=== PATIENT | male | born 1945 | race Caucasian/White ===

== ENCOUNTER → 2019-01-18 11:26 | Outpatient (CLI) | payer OTHER, SELFPAY ==
[2019-01-18 12:31] LABS: Carbon Dioxide 30 mmol/L (22-32); Chloride 102 mmol/L (98-107); HEMOLYSIS < 15 (0-50); Potassium 4.9 mmol/L (3.4-5.1); Sodium 142 mmol/L (137-145)
[2019-01-18 12:38] LABS: Add Manual Diff / Slide Review NO; Basophils Absolute Auto 0 /uL (0-100); Basophils Percent Auto 0.2 % (0-2); Eosinophils Absolute Auto 300 /uL (0-450); Eosinophils Percent Auto 3.2 % (2-4); Hemoglobin 14.4 g/dL (13.5-17.5); Lymphocytes Absolute Auto 3200 /uL (1100-4500); Lymphocytes Percent Auto 39.5 % (25-40); Mean Corpuscular HGB Conc 32.7 % (30-36); Mean Corpuscular Hemoglobin 30.3 PG (26-34); Mean Corpuscular Volume 92.6 fL (80-100); Monocytes Absolute Auto 600 /uL (0-900); Monocytes Percent Auto 7.7 % (3-14); Neutrophils Absolute Auto 4000 /uL (1500-7000); Neutrophils Percent Auto 49.4 % (50-75); Platelet Count 239 X10^3/uL (150-400); Red Blood Cell Count 4.75 X10^6/uL (4.5-5.9); Red Cell Distribution Width 13.1 % (11.6-14.8)
== END ==
PROVIDERS: Visit Provider Orthopaedic Surgery
DX: Z01.818 Encounter for other preprocedural examination (principal); M16.10 Unilateral primary osteoarthritis, unspecified hip; Z01.812 Encounter for preprocedural laboratory examination
CPT/HCPCS: 36415; 80051; 85025; 93005

== ENCOUNTER 2019-01-31 08:16 | Inpatient (IN) | payer OTHER, SELFPAY ==
[2019-01-24 14:09] VITALS: BMI 28.2
[2019-01-31] VITALS (14 sets, daily range): BP systolic 89–139; BP diastolic 42–76; PULSE 47–78; RESP 9–19; TEMP 35.8–36.9; O2SAT 13–97; BMI 28.9
--- NOTE | 2019-01-31 | DI.RAD.S_ITS ---
PROCEDURE: XR PELVIS 1-2V INDICATIONS: LEFT TOTAL HIP TECHNIQUE: 1 view of the lower pelvis acquired. COMPARISON: [facility] [place], CR, XR PELVIS WITH LATERAL HIP LEFT, 01/18/2019, 11:10. FINDINGS: Bones: Patient is status post a left hip arthroplasty, with hardware components in expected positions. The hip joint appears congruent. The visualized bony structures appear intact. Soft tissues: Overlying postoperative changes are noted. Scattered vascular atherosclerotic calcifications. IMPRESSION: Expected postsurgical change for left hip arthroplasty. Dictated by: Chelsi Landrum MD, PhD on 01/31/2019 at 13:43 Approved by: Chelsi Landrum MD, PhD on 01/31/2019 at 13:44
--- NOTE | 2019-01-31 06:00 | DI.RAD.S_ITS ---
PROCEDURE: XR HIP W PEL IF DONE LT 2V INDICATIONS: INTEROPERATIVE LEFT HIP TECHNIQUE: 2 view(s) of the hip acquired. COMPARISON: None. FINDINGS: Bones: Multiple fluoroscopic images of the left hip demonstrate post left total hip arthroplasty, with hardware components in expected positions. The hip joint appears congruent. The visualized bony structures appear intact. Soft tissues: No suspicious soft tissue abnormalities. IMPRESSION: Status post left total hip arthroplasty. Dictated by: Jamie La M.D. on 01/31/2019 at 13:46 Approved by: Jamie La M.D. on 01/31/2019 at 13:47
[2019-01-31] MEDS: LACTATED RINGERS 1,000 ML 42 ML IV ×2 (09:38→12:30)
[2019-01-31] MEDS: ACETAMINOPHEN 325 MG TABLET 975 MG PO (09:40)
[2019-01-31] MEDS: CELECOXIB 200 MG CAPSULE PO (09:41)
[2019-01-31] MEDS: PREGABALIN 75 MG CAPSULE PO (09:41)
--- NOTE | 2019-01-31 10:16 | PM.PREOP ---
Pre-operative Note Interval Note History & Physical reviewed/Exam performed by Physician: Yes Changes to H&P: No
--- NOTE | 2019-01-31 11:02 | SUR.PREOP ---
per dr. starks inr not needed
[2019-01-31] MEDS: CEFAZOLIN 2 GM/100 ML FROZ.PIGGY IV ×2 (11:05→19:05)
[2019-01-31] MEDS: TRANEXAMIC ACID 1,000 MG VIAL 1000 MG INJ ×2 (11:29→13:01)
--- NOTE | 2019-01-31 11:43 | SUR.OPER ---
Head on foam donut. Supine on fracture table with bilateral legs secured in padded boot. Left arm across chest on foam arm pad, secured with sheet and tape. Right arm on padded arm table with foam pad.
[2019-01-31] MEDS: ROPIVACAINE 0.5% PF 5 MG/ML 20ML AMP 60 ML INJ (11:51)
[2019-01-31] MEDS: MORPHINE 4 MG/ML INJ INJ (11:52)
[2019-01-31] MEDS: KETOROLAC 30 MG/ML VIAL IV (11:53)
--- NOTE | 2019-01-31 13:37 | P.OP_ITS ---
Operative Date/Time/Diagnoses Date of procedure: 01/31/19 Time of procedure: 13:33 Pre-op diagnosis: Left hip degenerative joint disease Post-op diagnosis: same Procedure & Clinicians Procedure: Left total hip arthroplasty (CPT code 45316 with botany laboratory assistant) Same procedure as scheduled: Yes Indications: Patient is an 74-year-old male with severe left hip DJD. The patient has pain with activities and at rest, limited ambulation and activity tolerance, difficulties with ADLs, and failure of conservative treatment. We have discussed the nature of condition, treatment options, risks and benefits, and patient elects to proceed with total hip arthroplasty via a direct anterior approach and gives informed consent. Surgeon: Abisai Hayward Thermit Welding Machine Operator: Regino Matt Anesthesia Type: General and Spinal Operative Notes Closure Type: primary Specimen(s): none sent Prosthetic devices, grafts, tissues, transplants, or devices: Acetabulum: Reilly and Nephew R3 acetabular component size 58 mm Femoral component: Reilly and Nephew Anthology stem size 10 with high offset Femoral head: 36 mm + 4 Oxinium Estimated Blood Loss (mL): 200 Blood products transfused: none Procedure in detail: Patient is brought to the operating room and after satisfactory induction of anesthetic and administration of IV antibiotics as well as initial dose of tranexamic acid, was placed in the supine position on the on the [place] table with both feet well padded in the ski boot foot holders. Left hip and lower extremity then prepped and draped in the usual sterile fashion. longitudinal anterolateral incision created beginning just lateral and distal to the ASIS and extending distally. this was carried sharply down to the fascia overlying the TFL, which was incised longitudinally and the muscle stripped from the fascia retracting the muscle belly posteriorly. the interval medial to the greater trochanter was identified with palpation and a Cobra retractor was placed. a Gelpi retractor was used to retract soft tissue distally where the deep fascia was incised cautiously and the circumflex vessels identified and cauterized. Pre capsular fat was then excised and a longitudinal capsular incision was created with the superior and inferior capsule released followed by a release of the inferomedial capsule. retractors were then placed in an intracapsular position and the femoral neck cut was made according to preoperative templating with the oscillating saw. femoral head was then removed with corkscrew device. Acetabular retractors then placed and sequential acetabular reaming to 57 mm was performed with an excellent circumferential ream and position confirmed as satisfactory using fluoroscopy. A trial 57 mm cup was then inserted and impacted into position with excellent position and fixation achieved, again confirmed with fluoroscopy. The trial was then removed and a permanent 58 mm Reilly and Nephew R3 acetabular component was selected inserted and impacted into position under fluoroscopic guidance. Permanent liner was then inserted. The leg was then extended, externally rotated, and adducted, and proximal femoral retractors were placed. soft tissue and residual capsule were removed from the piriformis fossa and a further posterior release was performed. a box osteotome was used to enter the proximal femoral canal and initial broaches placed down the canal. initial position and alignment were confirmed with fluoroscopy and then broaching resumed. Broaching continued up to size 10 which provided a snug fit and was consistent with preoperative templating. A trial reduction with a high offset +4 combination provided excellent leg length, range of motion, and stability which was also confirmed fluoroscopically. The broach was then removed and the permanent size 10 high offset anthology stem was selected, inserted, and impacted into position with excellent position and fixation achieved. another trial reduction year old above characteristic so a 36 mm +4 Oxinium head was selected and impacted. Final reduction was then performed and final fluoroscopic images confirmed satisfactory leg length, offset, and implant size and fit. Periarticular tissues were infiltrated with a combination of ropivacaine, morphine, and Toradol. The fascia of the TFL was then repaired with a running #1 Vicryl, subcutaneous layer closed with 3 O Vicryl, this was followed by an intra cuticular strata fix suture and skin closure with Exofen. The wound was dressed with an Aquacel dressing. Anesthetic terminated and patient taken to postanesthetic recovery in satisfactory condition. Complications: none Condition: stable Disposition: PACU Plan for aftercare: Patient will be admitted to the acute care [facility], and anti cipate discharge on postop day 1-2 with follow-up in office in 10-14 days. Outpatient physical therapy will be arranged and patient will continue to observe posterior hip precautions. Patient will continue use of postoperative Lovenox for 10 days postop.
--- NOTE | 2019-01-31 14:04 | SUR.PHASEI ---
Continues to deny pain/nausea, tolerating PO well. Denies dizziness. Dressing remains CDI
--- NOTE | 2019-01-31 14:15 | SUR.PHASEI ---
1406 To room 229, bed down and locked, call light within reach, pleasant, oriented, and talking. Denies pain/nausea, tolerating PO well. Dressing remains CDI. SCDs on. present. Clothes and cane to room,
[2019-01-31] MEDS: LACTATED RINGERS 1,000 ML 125 ML IV ×2 (14:54→22:35)
--- NOTE | 2019-01-31 16:16 | PT.IPTN ---
Current Diagnoses Unilateral primary osteoarthritis, left hip (01/31/19) Trochanteric bursitis, left hip (01/31/19) Iliotibial band syndrome, left leg (01/31/19) Surgery Performed Operation Date: 01/31/19 10:15 Actual Procedures p Total Hip Arthroplasty/Anterior Approach(Left) - Abisai Hayward MD Physical Therapy Treatment Note M3 PT-IP Subjective Start: 01/31/19 16:15 Freq: NEEDED Status: Active Protocol: Document 01/31/19 16:15 (Rec: 01/31/19 16:16 [id number]) Subjective Physical Therapy Visit Type Type Administrative Note Notes Pt awake in bed but still have numbness on LLE and unable to lift his leg yet. Left JASWINDER post op booklet to him. Reattempt PT tomorrow morning
--- NOTE | 2019-01-31 19:25 | PC.NURSE ---
1900 - Pt continues to report significant numbness to groin, left hip and LLE. Sat at edge of bed and attempt to void without success. Pt reports initial urge, but without results. Denies pain, O2 sats 94% on RA. Using IS independently. Monitor. Call light in reach. Supportive at bedside.
[2019-01-31] MEDS: HYDROCODONE/ACET 5/325 TABLET 1 TAB PO (23:46)
[2019-02-01 00:25] VITALS: BP 108/56; PULSE 78; RESP 15; TEMP 36.7; O2SAT 92
--- NOTE | 2019-02-01 00:26 | PC.NURSE ---
Pt. requested that I remove his SCD's for sleeping. He stated that he was unable to sleep while they were on.
[2019-02-01] MEDS: CEFAZOLIN 2 GM/100 ML FROZ.PIGGY IV (02:35)
[2019-02-01 03:12] VITALS: BP 123/65; PULSE 66; RESP 16; TEMP 36.6; O2SAT 96
[2019-02-01 06:02] LABS: Hematocrit 36.3 % (41-53); Hemoglobin 12.2 g/dL (13.5-17.5)
[2019-02-01 07:50] VITALS: BP 120/67; PULSE 61; RESP 16; TEMP 36.6; O2SAT 97
[2019-02-01] MEDS: ENOXAPARIN 40 MG/0.4 ML SYRINGE SUBCUT (08:15)
[2019-02-01] MEDS: HYDROCODONE/ACET 5/325 TABLET 1 TAB PO ×2 (08:15→13:32)
[2019-02-01] MEDS: SODIUM CHLORIDE 0.9% FLUSH 10 ML IV (08:16)
--- NOTE | 2019-02-01 10:18 | PT.IIE ---
Current Diagnoses Unilateral primary osteoarthritis, left hip (01/31/19) Trochanteric bursitis, left hip (01/31/19) Iliotibial band syndrome, left leg (01/31/19) Surgery Performed Operation Date: 01/31/19 10:15 Actual Procedures p Total Hip Arthroplasty/Anterior Approach(Left) - Abisai Hayward MD Surgical History (Last Updated 01/24/19 @ 14:23 by Yoana Capone, RN) History of arthroplasty of right knee (Acute) Medical History (Last Updated 01/24/19 @ 14:23 by Yoana Capone RN) Elevated cholesterol (Acute) Elevated liver enzymes (Acute) Enlarged prostate (Acute) Former smoker (Acute) Fragile skin (Acute) Hearing impaired (Acute) Left hip pain (Acute) Pneumonia (Acute) Pre-diabetes (Acute) Physical Therapy Inpatient Evaluation/Re-Eval M1 PT/OT-IP Prior Functional Status Start: 01/31/19 16:15 Freq: NEEDED Status: Active Protocol: Document 02/01/19 10:18 DLM (Rec: 02/01/19 11:56 DLM [id number]) Medical Review Prior Functional Status Medical History Reviewed Yes Diet/Fluid Consistency Regular Communication WNL Mobility and Gait Independent without device, community distances, plays golf Activities of Daily Living and IADL's Independent Social History Household Members spouse Living Arrangements House Number of Floors (Floors) Two Floors Number of Stairs To Enter/Railing? 0 Home Environment High Toilet Walk in Shower Home Equipment Front Wheel Walker Straight Cane Client Onboarding Analyst Sock Aid Employment Status Retired Additional Social History Comment he can stay on one level of house, does not have to do stairs M2 PT-IP Current Condition Start: 01/31/19 16:15 Freq: NEEDED Status: Active Protocol: Document 02/01/19 10:18 DLM (Rec: 02/01/19 11:56 DLM [email or web address]) Physical Therapy Current Condition Current Condition Evaluation Date 02/01/19 Treatment Diagnosis left JASWINDER, anterior approach Onset Date 01/31/19 Precautions Anterior Hip Precautions No Hip Extension No Hip External Rotation Weight Bearing Status Weight Bearing Status Weight Bear as Tolerated M3 PT-IP Subjective Start: 01/31/19 16:15 Freq: NEEDED Status: Active Protocol: Document 02/01/19 10:18 DLM (Rec: 02/01/19 11:56 DLM [email or web address]) Subjective Physical Therapy Visit Type Type Initial Evaluation Visit Start Time 09:20 Visit Stop Time 10:18 Total Visit Minutes 58 Number of STAFFING ADMINISTRATOR Visits 0 Physical Therapy Visit Comments Patient Comments His pain is better than before surgery, [place]: [place], has out-pt PT set up for tomorrow and Eus[place]io . Patient Goals go home today Therapy Pain Assessment Pain When Pain Assessed During Mobility Pain Present Pain Present Pain Reported Location Left Hip Intensity 2 Scale Used Numeric (1 - 10) Description Aching Tender Pain Behaviors Guarding Pain Management Techniques Apply Cold Re-positioning M4 PT-IP Mobility and Gait Start: 01/31/19 16:15 Freq: NEEDED Status: Active Protocol: Document 02/01/19 10:18 DLM (Rec: 02/01/19 11:56 DLM [email or web address]) PT-Bed Mobility Assessment Supine to Sit Supine to Sit Independent Sit to Supine Sit to Supine Independent Scooting Scooting to Edge of Bed Independent Scooting Up and Down in Bed Independent PT-Transfer Assessment Sit to and From Stand Sit to and from Stand Independent Use of Upper Extremities Equipment Transfer Assistive Device Gait Belt Front Wheeled Walker Transfers Transfer Destination Bed Chair Transfer Technique Stand Step Pivot Transfer Ability Level of Assist Independent Use of Upper Extremities Comments Mobility Comments he needs to use UE support to get left LE into/out of bed, training used for safest technique Gait Assessment Gait Gait Assistance Required: Independent Distance (Feet) 150 Able to Maintain Weight Bearing Status Yes During Gait Assistive Devices Assistive Device Gait Belt Front Wheeled Walker Gait Deviations General Gait Pattern Antalgic Factors Limiting Gait Function Factors Limiting Gait Function Decreased Activity Tolerance Decreased Strength Limited Range of Motion Pain Comments Gait Comments he vaults off right LE to advance left LE during swing phase on left LE, educated pt to avoid this vaulting motion which can lead to right calf tightness and cramping, he is able to demonstrate a safe gait pattern without vaulting, he has difficulty lifting left LE off floor with hip flexion motion with reports of weakness Stair Climbing Assessment Comments Stair Climbing Comments he reports he has no stairs he has to perform at home PT-Balance Assessment Sitting Balance and Reactions Static Sitting Balance Ability Normal Dynamic Sitting Balance Ability Normal Standing Balance and Reactions Static Standing Balance Ability Good Dynamic Standing Balance Ability Good Device Used FWW M5 PT-IP Objective Assessments Start: 01/31/19 16:15 Freq: NEEDED Status: Active Protocol: Document 02/01/19 10:18 DLM (Rec: 02/01/19 11:56 DLM [email or web address]) Orientation Orientation/Cognition Level of Alertness Alert Orientation Name Age Birthday Month Date Year Day of Week Place Situation Language Function Ability No Deficits Noted Safety Awareness Understands Safety Issues Memory Description No Deficits Noted Gross Range of Motion Upper Extremity ROM Assessment Within Functional Limits Lower Extremity ROM Assessment Left Impaired Impairments post-op restrictions left hip with pain Strength Upper Extremity Strength Assessment Within Functional Limits Lower Extremity Strength Assessment Left Impaired Hip hip flexion 2/5 Knee ext 3-/5 Ankle DF 4+/5 Comments Strength Comments left LE strength affected by post-op pain Coordination Assessment Gross Coordination Gross Coordination WNL Sensation Assessment Sensation Gross Sensation Left LE Impaired Sensation Description Numbness Comments Sensation Comments mild numbness in left thigh areas since surgery Muscle Tone Muscle Tone WNL Yes M6 PT-IP Treatment Start: 01/31/19 16:15 Freq: NEEDED Status: Active Protocol: Document 02/01/19 10:18 DLM (Rec: 02/01/19 11:56 DL [email or web address]) Physical Therapy Treatment Exercises Exercises Ankle Pumps Gluteal Sets Quad Sets Heel Slides Education Education Provided Precautions Weight Bearing Status Post-Op Packet Safety Other Treatments Other Treatment Performed he has FWW which is too short for him, his planned to borrow a taller one when back on [facility], he is safe to discharge home with his current FWW but recommend he get an appropriate height FWW as soon as possible, answered questions and addressed concerns with patient and his , pt is ok to cancel OP PT session for tomorrow and begin on Thursday instead M7 PT-IP Assessment and Plan Start: 01/31/19 16:15 Freq: NEEDED Status: Active Protocol: Document 02/01/19 10:18 DLM (Rec: 02/01/19 11:56 DLM [email or web address]) PT Summary Assessment and Plan Potential Rehabilitation Potential Excellent Status of Condition at Evaluation Evolving Summary Impairments Pain ROM Strength Balance Bed Mobility Transfers Gait Activity Tolerance Progress Towards Goals Safe For Discharge Assessment Summary Marga is alert and motivated to participate in physical therapy. He tolerated gait and mobility well today. He has a supportive to assist him at home. He demonstrates safe gait with FWW on level surfaces. He reports having no steps that he has to do when he first gets home. He appears safe to discharge home when medically cleared. Frequency of Treatment Frequency Of Treatment Discharge Treatment Plan Other Recommendations and Next Treatment cleared for discharge home Focus today Recommendations To Nursing Amount of Assist Needed Standby Assistance Discharge Recommendations PT Discharge Recommendations Home with Assistance Outpatient PT
--- NOTE | 2019-02-01 10:32 | P.DS_ITS ---
History of Present Illness Date Patient Seen: 02/01/19 Time Patient Seen: 10:29 Chief complaint: Total Hip Arthroplasty Narrative: Hospital day 2, postop day 1 following left anterior total hip arthroplasty by Dr. Hayward. Patient doing well at this time. he has been ambulating to bathroom. He has not had any physical therapy yet. Pain controlled well with Armstrong 5/325 mg. He is a [facility] patient and anticipates going home today. he does have physical therapy scheduled at [facility]. Discharge Providers Date of admission: 01/31/19 08:16 Discharge Date: 02/01/19 Primary care physician: Roel Bajwa MD Consults: 01/31/19 14:15 Consult to Discharge Planning Routine Comment: Consult to Physical Therapy Evaluate & Treat Comment: Physician Instructions: post op JASWINDER protocol Consult to Respiratory Therapy Evaluate & Treat Comment: Physician Instructions: Evaluate and treat Discharge provider: Vineet Resendiz PA-C Summary Discharge Diagnosis: Status post left anterior total hip arthroplasty Hospital Course: Patient brought to hospital on 01/31/2019 for above noted surgery. he remained stable postoperatively. Progressed well with physical therapy. Ready for discharge home on postop day 1. Status at Discharge Cognitive/behavioral status at discharge: oriented Functional status at discharge: uses cane/walker Overall status at discharge: patient is progressing back to baseline Time Spent with Patient Less than 30 minutes Exam Vital Signs (past 8 hours): - 02/01/19 03:12 02/01/19 07:50 Temperature 97.9 F 97.9 F Pulse Rate 66 61 Respiratory Rate 16 16 Blood Pressure 123/65 120/67 Pulse Oximetry 96 97 Oxygen Delivery Method Room Air Oxygen Flow Rate 1 Narrative Exam Narrative: Alert, oriented no acute distress sitting in chair. Legs. Aquacel dressing to left anterior hip is dry without drainage or inflammation. No calf pain or swelling. Pulses symmetrical. Objective Labs Result Diagrams: 02/01/19 04:59 Labs: Laboratory Results - last 24 hr 02/01/19 04:59 Hgb 12.2 L Hct 36.3 L Discharge Plan Discharge Plan Patient Disposition: Home Discharge comment: Discharge home after cleared by PT. Patient is a [facility] patient has postoperative pain medication at home. Anterior total hip arthroplasty protocol x6 weeks postop. He is scheduled for physical therapy at [facility]. Discharge Med Rec/Prescriptions Prescriptions: New enoxaparin [Lovenox] 40 mg/0.4 mL Syringe 40 mg subcut DAILY Qty: 9 RF: 0 Continued acetaminophen 500 mg Capsule 1,000 mg PO BID RF: 0 Follow up/Referrals: Roel Bajwa MD [Primary Care Provider] - Provider Discharge Instructions Diet: Diet as Tolerated Activity: Ambulate as tolerated. Use walker as needed. anterior total hip arthroplasty protocol precautions x6 weeks postop. Cold/Heat Therapy: Cold pack to hip as needed. Skin/Wound/Dressing Care Report to your healthcare provider any signs of infection, such as:: chills, fever, night sweats, increased pain, unusual drainage and unusual redness Dressing: Keep Aquacel dressing in place until postop visit. Visit Report/Discharge Packet Instructions: DI for Hip Replacement Discharge Data Primary Care Provider: Roel Bajwa Attending Provider: Abisai Hayward Admit Date/Time: 01/31/19 08:16 Quality VTE Deep Vein Thrombosis/Pulmonary Embolism Present on Admission: No
--- NOTE | 2019-02-01 14:14 | PC.NURSE ---
Discharge: IV dc'd intact. Reviewed all d/c info with patient and his . Anterior hip precautions. Meds per [facility], follow home list. Given script for Lovenox and did Lovenox teaching with patient this morning. He self-administered his Lovenox dose this morning directed and supervised by this newspaper writer- he used correct technique and felt okay doing this at home. Has outpatient PT set up. Verbalized understanding of all discharge instructions and stated no further questions. All personal belongings collected and sent with patient. Given priority board for 2:40 ferry to [place]. Taken out to private vehicle via wheelchair, accompanied by nursing staff.
--- NOTE | 2019-02-01 14:27 | CM.DANOTE ---
Patient is a 74 year old male who was admitted [facility] on 01/31/19 for Total Hip Arthro. Pt has [facility] for insurance and his PCP is Dr. Roel Bajwa. EMR was reviewed. Per Ortho PA, pt planning d/c home today pending PT. Per PT, pt is safe for d/c home with spouse assist and outpt PT set up already in Thursday. Pt lives at home with his spouse on [address] and is Independent with ADL's at baseline and has DME equipment at home to help with toilet seat lift, grab bars, walker, etc. Pt already scheduled for outpt PT on Thursday [place]. No concerns at this time and no identified barriers to discharge. Plan: Patient to d/c home today via spouse POV and [address] to Thursday and outpt PT. WADE Boucher Discharge Planning/Care Management CM Discharge Assessment Start: 02/01/19 14:25 Freq: Status: Discharge Protocol: Document 02/01/19 14:25 BF (Rec: 02/01/19 14:27 BF [id number]) Discharge Planning Assessment Assigned Cell Tender Helper WADE Lim DPOA/Assigned Designee Name Spouse Rashmi Contact Information [phone] Advance Directives? Yes Advance Directives on File No History Provided By Patient Family Member Medical Record Has Patient been admitted in last 30 No days? Prior Living Arrangements House Household Members spouse Type of transporation used prior to Drives own vehicle admit Independent with ADL's Yes Is patient alert and oriented? Yes Caregiver for Another No Community Services used prior to Physical Therapy admission: DME Already Rented / Owned Elevated Toilet Seat FWW / Walker Comment Per PT, home with spouse assist Barriers to Discharge No Discharge Plan Home Community Services Physical Therapy Transportation Arrangement Spouse to provide transport back to Thursday Referrals Initiated None needed Review Status In Process Please Provide Date Initial DC 02/01/19 Assessment Was Performed Next Review Type Continued Stay Review Pre-Anesthesia Assessment Start: 01/24/19 14:09 Freq: Status: Discharge Protocol: Document 01/24/19 14:09 CAB (Rec: 01/24/19 15:04 CAB [id number]) Pre-Anesthesia Assessment Patient Information Reviewed Via Phone Assessment Assessment Completed With Patient Diagnostic Results CBC EKG Electrolytes Primary Care Provider Roel Bajwa Seen Specialist in Last 12 Months Yes Specialist Seen Orthopedist Primary Language Pashto [id number] Analyst Required No Height 187.96 cm Weight 99.79 kg Body Mass Index (BMI) 28.2 Hearing Ability Hard of Hearing Use of Hearing Aid Visual Assist Glasses Dentition Type Dental Implants Barriers to Learning None Other Aids No Hx Anesthesia Reactions No Hx Family Anesthesia Reaction No Hx Malignant Hyperthermia No Hx Blood Transfusions No Anesthesia Review Requested No Assayer Helper No alcohol intake current alcohol intake frequency 0-2 drinks per day Smoking Status Former smoker how long ago did patient quit smoking Quit 1989 Substance Use Type does not use Pain Present Pain Reported Musculoskeletal Symptoms Abnormal Gait Difficulty Walking Joint Pain Muscle Cramps History of Falling (Recent or History of No ) Patient is completely paralyzed or No completely immobile Prosthesis or Orthotic Device Cane Mental Status Oriented to own ability Is patient on oxygen? No Does patient have RAMIREZ/SOB No Hx Sleep Apnea No Currently Taking a Beta Greg No Can You Climb a Flight of Stairs Without Yes SOB Hx Chest Pain No Hx SOB No Hx Syncope or Dizziness No Anti-Coagulant Therapy No Has a Profile Stitching Machine Operator No Cardiac Testing No Hx Pacemaker/ICD No Pacemaker Rep Required? No Cardiac Clearance Received Not Applicable Diet Type At Home Regular dysphagia No Bladder Pattern Nocturia Urinary Catheter Present No Hx Urinary Self Catheterization No Diabetes No Hx Drug Resistant Organism No Presence of External or Internal Medical No Devices Have you traveled outside the [facility] in the last 30 days? Marital Status Lives With spouse Prior Living Arrangements House Number of Floors (Floors) Two Floors Support System Spouse Does the Patient Have Assistance After Yes Surgery Patient Discharge Plan Description Return Home Comment Pt advised 1 night length of stay per surgeon's office Feels Safe in Current Environment Yes Been Physically Hurt or Threatened By a No Person in Current Environment Do you have thoughts of harming yourself None or others? Are you currently considering suicide? No Do you have a plan to hurt yourself or No Plan others? Do You Have Any Spiritual Beliefs That No May Affect Your HC Choices? Do You Have Any Cultural Practices That No May Affect Your HC Choices? Spiritual Referral None Comment Baptism Who Can We Speak to About Patient's Care Family, friends Identifying Code for Release of Patient Declines to issue Information Health Care Proxy/Next of Kin Rashmi () Health Care Proxy Emergency Contact Name Rashmi () Emergency Contact Advance Directives? Yes Advance Directives on File No Requested Patient Bring Advanced Yes Directives DOS PAC Instructions Durable medical equipment Medications to take/avoid Nasal antibiotic No ETOH/petroleum product on skin DOS NPO Post-op transportation Pre-surgical wash Sturdy shoes/comfortable clothes Do not bring valuables and remove jewelry
== END 2019-02-01 14:24 | disposition home or self-care (01) | DRG 470 ==
PROVIDERS: Admitting Provider Orthopaedic Surgery; PCP Student in an Organized Health Care Education/Training Program; Visit Provider Orthopaedic Surgery
PROC: 0SRB02Z Replacement of Left Hip Joint with Metal on Polyethylene Synthetic Substitute, Open Approach (ICD-10-PCS; CPT 27130; principal; 2019-01-31 10:15)
DX: M16.12 Unilateral primary osteoarthritis, left hip (principal); M70.62 Trochanteric bursitis, left hip; M76.32 Iliotibial band syndrome, left leg; Z87.891 Personal history of nicotine dependence
CPT/HCPCS: 36415; 72170; 73502; 76000; 85014; 85018; 94760; 97110; 97162; 97530; C1776; J0690; J1100; J1650; J1885; J2250; J2270; J2405; J2704; J2795; J3010

== ENCOUNTER → 2023-04-13 16:49 | Outpatient (CLI) | payer MEDICARE, OTHER, SELFPAY ==
[2019-01-31 15:35] VITALS: BMI 28.9
--- NOTE | 2023-04-13 16:52 | DI.MRI.S_ITS ---
PROCEDURE: MR LUMBAR SPINE WO CON INDICATIONS: Low back pain TECHNIQUE: Noncontrast sagittal T1 spin echo and T2 fast echo, sagittal STIR, and T2 fast spin echo through the lumbar spine. In cases with scoliosis, additional coronal T2 fast spin echo may be performed. COMPARISON: None. FINDINGS: Image quality: Excellent. Alignment and Curvature: There is normal bony alignment. Bone Marrow: Marrow is of normal overall signal. There is a superior endplate deformity with hypointense T1 and hyperintense STIR signal within the L1 vertebral body. There is approximate 20% compression deformity. Spinal Cord: Conus medullaris terminates at the L1 level. Visualized cord demonstrates normal signal and size. 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 Paraspinous Soft Tissues: No paravertebral masses. Discs: Moderate desiccation is present throughout the lumbar spine most severe at L5-S1. T12-L1: No disc bulge, spinal stenosis or foraminal narrowing. L1-L2: No disc bulge, spinal stenosis or foraminal narrowing. L2-L3: Minimal disc bulge without spinal stenosis. Mild facet and ligamentum flavum hypertrophy are present. No foraminal narrowing. L3-L4: Minimal disc bulge without spinal stenosis. Moderate to severe right and [id number] left foraminal narrowing with facet and ligamentum flavum hypertrophy. L4-L5: Mild disc bulge with mild spinal stenosis. Moderate to severe right and minimal left foraminal narrowing with facet and ligamentum flavum hypertrophy. L5-S1: Mild disc bulge without spinal stenosis. Moderate to severe bilateral foraminal narrowing with slight effacement of the exiting nerve roots bilaterally. Facet hypertrophy is present. IMPRESSION: 20% subacute compression fracture at L1. Multilevel degenerative change with overall moderate to severe foraminal narrowing most significant at L5-S1 secondary to facet arthropathy. Dictated by: Dianne Guerra M.D. on 04/14/2023 at 10:19 Approved by: Dianne Guerra M.D. on 04/14/2023 at 10:37
== END ==
PROVIDERS: PCP Family Medicine; Referring Provider Family Medicine; Visit Provider Family Medicine
DX: M48.56XA Collapsed vertebra, not elsewhere classified, lumbar region, initial encounter for fracture (principal); M47.817 Spondylosis without myelopathy or radiculopathy, lumbosacral region; M47.816 Spondylosis without myelopathy or radiculopathy, lumbar region; M48.07 Spinal stenosis, lumbosacral region; M48.061 Spinal stenosis, lumbar region without neurogenic claudication; M54.50 Low back pain, unspecified
CPT/HCPCS: 72148